=== PATIENT | male | born 1965 | race African-American/Black ===

== ENCOUNTER 2017-11-07 20:12 | Emergency (ER) | payer OTHER ==
[2017-11-07] MEDS ORDERED: DIPH,PERTUS(ACELL)TETVAC-LF 0.5 ML VIAL IM ONE (20:36)
--- NOTE | 2017-11-07 20:40 | ED ---
General Adult HPI - General Stated complaint: DOG BITE Time Seen by Provider: 11/07/17 20:24 - History of Present Illness Initial comments: Sesar is a 52-year-old [id number] male who presents to the emergency department today for evaluation of injury to his left hand after dog bite. Also reports that he was in his own home, his grandson was at the home with him , he states that his grandson was just playing when suddenly their dog bit the grandson. Full-term immediately grabbed the dog, he does believe he intentionally put his hand in the dog's mouth to remove her mouth from his grandsons arm. The dog did subsequently bite his left hand. He denies any other complaints. 911 was called, police report was made. The dog has been placed in a cage and will be taken animal control tomorrow. Sesar does not believe that his dog is fully up-to-date on vaccinations but he has no concern for rabies. He believes his last tetanus shot was about 18 years ago. - Related Data Home Medications Medication Instructions Recorded Confirmed Atenolol (Unk. Dose) 1 tab PO DAILY 11/07/17 11/07/17 Buspar (Unknown Dose) 1 tab PO DAILY 11/07/17 11/07/17 Lisinopril (Unknown Dose) 1 tab PO DAILY 11/07/17 11/07/17 Unknown Cholesterol Medication 1 tab PO DAILY 11/07/17 11/07/17 Wellbutrin (Unknown Dose) 1 tab PO DAILY 11/07/17 11/07/17 Allergies Allergy/AdvReac Type Severity Reaction Status Date / Time No Known Allergies Allergy Verified 11/07/17 20:39 Review of Systems ROS Statement: Those systems with pertinent positive or pertinent negative responses have been documented in the HPI. ROS Other: All systems not noted in ROS Statement are negative. Past Medical History Past Medical History: Hyperlipidemia, Hypertension, Pneumonia Additional Past Medical History / Comment(s): anxiety, depression, chronic back pain History of Any Multi-Drug Resistant Organisms: None Reported Additional Past Surgical History / Comment(s): right shoulder Past Psychological History: No Psychological Hx Reported Smoking Status: Current every day smoker Past Alcohol Use History: Daily Past Drug Use History: None Reported General Exam Limitations: no limitations General appearance: alert, in no apparent distress Head exam: Present: atraumatic, normocephalic Eye exam: Present: normal appearance Neck exam: Present: normal inspection Respiratory exam: Absent: respiratory distress Cardiovascular Exam: Present: regular rate GI/Abdominal exam: Present: soft Rectal exam: Present: deferred Extremities exam: Present: full ROM, normal capillary refill. Absent: tenderness, joint swelling Neurological exam: Present: alert, oriented X3 Psychiatric exam: Present: normal affect, normal mood Skin exam: Present: other (2 puncture wounds to the left hand, multiple superficial abrasions over the left hand and arm) Course Vital Signs 11/07/17 20:35 Temperature 98.7 F Pulse Rate 84 Respiratory 16 Rate Blood Pressure 155/84 O2 Sat by Pulse 99 Oximetry Medical Decision Making - Medical Decision Making Patient was seen and evaluated, history was obtained from the patient Patient with a dog bite to the left hand. X-rays and tetanus vaccination were ordered Patient was offered rabies vaccination however he doesn't feel that is necessary X-ray with no acute injuries Wounds were extensively cleansed with soap, water and Betadine no foreign objects are identified. None of the wounds require repair. Local wound care was discussed extensively with the patient. Patient received his 2 Vaccination All questions pertaining to care were answered to the best of my ability and the patient was discharged home in stable condition. Patient was advised to return should the dog develop any signs of rabies or should he develop any signs or symptoms of infection in the bites. Disposition Clinical Impression: Bite by animal Disposition: HOME SELF-CARE Condition: Good Instructions: Animal Bite (ED) Referrals: Kate Dorado MD [Primary Care Provider] - 1-2 days Time of Disposition: 21:15
[2017-11-07 20:41] VITALS: BP 155/84; PULSE 84; RESP 16; TEMP 98.7
--- NOTE | 2017-11-07 20:47 | XR ---
EXAMINATION TYPE: XR hand complete LT DATE OF EXAM: 11/07/2017 COMPARISON: NONE HISTORY: Dog bite. Pain. TECHNIQUE: 3 views FINDINGS: I see no fracture nor dislocation. Metacarpals appear intact. Joint spaces are normal. IMPRESSION: Negative left hand exam.
== END 2017-11-07 21:30 | disposition home or self-care (01) ==
LOC: EC 20:12
DX: S61.452A Open bite of left hand, initial encounter (principal); S40.812A Abrasion of left upper arm, initial encounter; E78.5 Hyperlipidemia, unspecified; I10 Essential (primary) hypertension; F32.9 Major depressive disorder, single episode, unspecified; F41.9 Anxiety disorder, unspecified; F17.200 Nicotine dependence, unspecified, uncomplicated; Z23 Encounter for immunization; Z79.899 Other long term (current) drug therapy; Y92.009 Unspecified place in unspecified non-institutional (private) residence as the place of occurrence of the external cause; W54.0XXA Bitten by dog, initial encounter
CPT/HCPCS: 90471; 90715; 99284

== ENCOUNTER → 2024-11-15 | Outpatient (CLI) | payer OTHER ==
--- NOTE | 2024-11-15 12:47 | CTL ---
EXAMINATION TYPE: CT Low Dose Lung DATE OF EXAM: 11/15/2024 9:14 AM COMPARISON: Radiograph 04/30/2014 CLINICAL INDICATION: Male, 59 years old with history of Z12.2 LUNG CA SCR F17.210 CURRENT SMOKER, sienna g [place] screening, History of tobacco use. 45 pack-year history. TECHNIQUE: Low dose computed tomography scan was performed through the chest at 1 mm thick sections a nd reconstructed images in multiple planes at 1 mm and [address] DLP: 77 mGycm, CT CTDI: 2.22 mGy, Automated exposure control for dose reduction was used. CT DIAGNOSTIC QUALITY: Limited, but interpretable FINDINGS: The heart is normal size without pericardial effusion. Aorta normal caliber with minimal atherosclerotic arch calcifications. Conventional arch was a branch ing anatomy. No thoracic lymphadenopathy by CT size criteria. Mild diffuse bronchial wall thickening. Mild emphysematous change in the upper lungs. No consolidatio n or pleural effusion. * 3 mm calcified granuloma anteromedial right mid lung. * 3 mm subpleural pulmonary nodule posterolateral right mid lung, axial image 170. * A cluster of 3 mm nodules posteromedial right mid lung, axial images 192 through 194. * 4 mm subpleural pulmonary nodule lateral left lower lobe, axial image 219. * 4 mm subpleural pulmonary nodule posterior left lower lobe, axial image 198. * 3 mm intrafissural lymph node left midlung, axial image 151. * 3 mm lingular pulmonary nodule, axial image 130. Visualized upper abdomen shows no gross abnormality. Bones: Mild degenerative disc disease mid and lower thoracic spine. IMPRESSION: 1. LungRADS 2, benign. A few scattered pulmonary nodules measuring 4 mm and smaller on baseline scree luiz. 2. COPD with mild emphysema. Recommend smoking cessation. CT LUNG RAD AND CT CHEST RECOMMENDATION: Lung-Rad 2 Benign Appearance or Behavior: Continue annual sc reening with LDCT in 12 months. S Modifier (other clinically significant findings): None [facility], , 11/15/2024 12:44 PM
== END | disposition home or self-care (01) ==
LOC: RADCTMAIN 08:58
PROVIDERS: ATTEND Family Medicine
DX: Z12.2 Encounter for screening for malignant neoplasm of respiratory organs (principal); F17.210 Nicotine dependence, cigarettes, uncomplicated; J44.9 Chronic obstructive pulmonary disease, unspecified; J43.9 Emphysema, unspecified
CPT/HCPCS: 71271